=== PATIENT | male | born 1970 | race Caucasian/White ===

== ENCOUNTER 2024-12-20 11:11 | Emergency (ER) | payer OTHER, SELFPAY ==
[2024-12-20 11:17] VITALS: BP 140/90
[2024-12-20 12:41] LABS: % Basophils 0.5 % (0-2); % Eosinophils 3.4 % (0-6); % Immature Granulocytes 0.2 % (0-0.5); % Monocytes 10.3 % (1.7-9.3); % Neutrophils 65.6 % (42.2-75.2); Absolute Eosinophils 0.3 10^3/uL (0-0.7); Absolute Lymphocytes 1.7 10^3/uL (1.2-3.4); Absolute Monocytes 0.9 10^3/uL (0.1-0.6); Absolute Neutrophils 5.6 10^3/uL (1.4-6.5); Hematocrit 41.4 % (39.0-52.0); Hemoglobin 14.1 g/dL (13.0-18.0); Mean Corp Hgb Conc. 34.1 g/dL (33.0-37.0); Mean Corpuscular Hgb 29.6 pg (27.0-31.0); Mean Corpuscular Volume 86.8 fL (80.0-94.0); Mean Platelet Volume 9.8 fL (7.4-10.4); Nucleated Red Blood Cells % 0 % (-); Platelet Count 285 10^3/uL (130-400); Red Blood Cell Count 4.77 10^6/uL (4.70-6.10); Red Cell Dist. Width 11.9 % (11.5-14.5); White Blood Cell Count 8.5 10^3/uL (4.8-10.8)
--- NOTE | 2024-12-20 12:41 | ED.GENMED ---
History of Present Illness
General
Chief Complaint: Musculo-Skeletal Complaint
Source: patient
Exam Limitations: none
Time Seen by Provider: 12/20/24 12:12
Nursing documentation reviewed up to this point in time: agreed with
History of Present Illness
History of Present Illness:
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
pt says he felt some stiffness when it first started and has noticed increasing swellign since. never any skin changes, redness, warmth. pt is able to move his ankle but when he walks it is uncomfortable
about 6 days ago he went to and had xrays and was told he had no findings. put on steroids (soudns like pred 40 mg daily x 4 dys) and felt better on steroids but then the pain returned. using crutches to help avoid weight bearing
pt has not had fever, chills, numbnes/tingling/cp, sob, h/o dvt/pe
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
took motrin this morning.
Past History
Past History
ED Past Medical History: None
ED Past Surgical History: None
Social History
Tobacco: Non-smoker
Alcohol: None
Drug: None
Personal:
Living: with family
Employment: Employed
Review of Systems
Review of Systems
Allergies reviewed?: Yes
All Other Systems: Not applicable
Phy Exam
Physical Exam
Physical Exam:
GENERAL: Alert , in no apparent distress, comfortable at rest
HEAD: NCAT
CV: 2+ DP PULSES B/L
NEUROLOGICAL: Alert and oriented, no focal neuro deficits, , 5/5 strength, sensation intact, ambulation slight limp left leg
SKIN: Warm and dry, no skin changes
MUSCULOSKELETAL: Patient has diffuse swelling from his ankle to his toes on the left foot, some tenderness mildly to the midfoot, able to range his ankle normally, no redness or warmth. The plantar aspect of his foot distal MTPs of the second and
third there is a nontender lump with a callus in the center, there is no drainage
PSYCH: Normal and appropriate interaction.
Course
Orders/Labs/Results
Orders:
Orders
12/20/24 12:29
Ankle, left 3 view CR [CR Ankle - Left Min 3 Views ] Urgent
Comment:
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
CR Foot - Left Min 3 Views Urgent
Comment:
Reason For Exam: left foot swelling, no injury
Venous Doppler Lwr Ext Left [US Periph Venous LOWER Ext LT] Urgent
Comment:
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
12/20/24 12:36
Complete Blood Count/With Diff Urgent
Comprehensive Metabolic Panel Urgent
Uric Acid Urgent
12/20/24 13:47
Case Management Consult ONCE
Case Management Consult: Other
12/20/24 14:58
Apixaban [Eliquis] 5 mg PO NOW STA
Abnormal Lab Results
12/20/24
12:36
Absolute Monos (auto) 0.9 H 10^3/uL
(0.1-0.6)
Lymphocytes % 20.0 L %
(20.5-51.1)
Monocytes % 10.3 H %
(1.7-9.3)
BUN 22 H mg/dl
(9-20)
Glucose 109 H mg/dl
(70-99)
12/20/24 12:36
12/20/24 12:36
Vital Signs
Initial and Last Documented VS:
Initial Vital Signs
Temp Pulse Resp BP Pulse Ox
36.8 C 90 18 140/90 98
12/20/24 11:17 12/20/24 11:17 12/20/24 11:17 12/20/24 11:17 12/20/24 11:17
Last Documented Vital Signs
Temp Pulse Resp BP Pulse Ox
36.8 C 90 18 140/90 98
12/20/24 11:17 12/20/24 11:17 12/20/24 11:17 12/20/24 11:17 12/20/24 11:17
MDM/Problems Addressed
Differential Diagnosis Includes:
dvt, arthritis, sprain, pseudogout
MDM/Problems Addressed:
54 y/o M
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
ataruamtic pain/swelling L foot/ankle for about 10 days
worse with weight bearing
no numbnes/tingling/weakness, no skin changes, no cp, sob
on exam pt has no significant tendenress
he is diffusely swollen foot/ankle and slightly in the lower leg
normal NV exam
xryas indep reivewed sohw calcification plantar aspect of foot but no fx
dvt study POSITIVE
counseled on AC
labs reviewed, normal renal fxn
will consult case management
no cp, sob
d/c home
*Critical Care Note
Total Time (30-74mins, 75-104mins- exclusive of procedures): Not Applicable
ED Attending Note
-
Portions of this chart may have been created with voice recognition software.� Occasional wrong word or��sound alike� substitutions may have occurred due to the inherent limitations of voice recognition software.
Discharge Plan
Departure
Patient Disposition: Home (Routine Discharge)
Date of Disposition: 12/20/24
Time of Disposition: 14:51
Patient with high blood pressure during this ER visit?: Yes
Condition: Fair
Covid-19: Not Applicable
Discharge Problem:
DVT (deep venous thrombosis)
Instructions: Deep vein thrombosis (DVT) - ED discharge instructions
Prescriptions:
New
Eliquis DVT-PE Treat 30D Start 5 mg (74 tabs) tablets,dose pack
See Rx Instructions .ROUTE .COMPLEX Qty: 74 0RF
Rx Instructions:
orally per package directions
No Action
guaifenesin [Mucus Relief ER] 600 MG tablet extended release 12hr
600 mg PO Q12 0RF
dexamethasone [Decadron] 6 MG tablet
6 mg PO DAILY Qty: 6 0RF
Referrals:
Izzy Olson MD [Family Provider] - Follow up in 5-7 days
Activity Restrictions/Additional Instructions:
YOU HAVE A BLOOD CLOT IN A VEIN IN YOUR LEG CAUSING THE PAIN AND SWELLING IN YOUR FOOT AND ANKLE
YOUR XRAYS SHOW CALCIFICATION IN YOUR FOOT BUT THIS PROBABLY WAS FROM OLD INJURY AND IS NOT CAUSING THE PAIN
THERE ARE NO NEW BREAKS
YOUR BLOOD WORK WAS REASSURING
TAKE THE BLOOD THINNER PRESCRIBED DAILY
RETURN FOR: SPONTANEOUS BLEEDING YOU CANNOT CONTROL, HEAD INJURY, SEVERE PAIN, LEG COLOR CHANGES, CHEST PAIN, SHORTNESS OF BREATH ETC
IF YOU HAVE ANY TRAUMATIC INJURIES PLEASE CONSIDER BEING EVALUATED ANTICOAGUOLANTS INCREASE BLEEDING RISK AFTER TRAUMA
OTHERWISE SEE YOUR DOCTOR IN 2WEEKS.
Interventions
Interventions:
*Risk Screen - Suicide Last Done: 12/20/24 11:17
*General Assessment Last Done: 12/20/24 11:17
*Neglect/Abuse Screening Last Done: 12/20/24 11:17
*ED- Fall Risk Assessment Last Done: 12/20/24 15:13
*ED COVID-19 Vaccine History Last Done: 12/20/24 11:17
*Nursing Disposition Last Done: 12/20/24 15:13
ED-Musculoskeletal Assessment Last Done: 12/20/24 11:53
Discharge Date and Time
Discharge Date/Time: 12/20/24 15:14
Print Language: JAPANESE
[2024-12-20 13:04] LABS: ALT (SGPT) 17 U/L (0-50); AST (SGOT) 17 U/L (17-59); Albumin 3.9 g/dl (3.5-5.0); Alkaline Phosphatase 86 U/L (38-126); Blood Urea Nitrogen 22 mg/dl (9-20); Calcium 9.9 mg/dl (8.4-10.2); Carbon Dioxide 30 mmol/L (22-30); Chloride 102 mmol/L (98-107); Glucose 109 mg/dl (70-99); Potassium 4.4 mmol/L (3.5-5.1); Sodium 138 mmol/L (135-145); Total Bilirubin 0.8 mg/dl (0.2-1.3); Total Protein 7.4 g/dl (6.3-8.2); Uric Acid 6.7 mg/dl (3.5-8.5); eGFR > 60.00
--- NOTE | 2024-12-20 14:54 | CM ---
Cm reviewed medical records. Patient stated that he does not know what insurance company they use for prescriptions. Patient does have [employer] insurance for medical coverage. CM called [facility] pharmacy and confirmed that patient does have [facility] scripts.
Confirmed that Eliquis requires a prior authorization. Patient given Eliquis coupon and instructed to have patient follow up with PCP for prior authorization.
CM updated ED PA.
[2024-12-20] MEDS: ELIQUIS 5 MG PO (15:02)
== END 2024-12-20 15:14 | disposition home or self-care (01) ==
LOC: EMR 11:11
PROVIDERS: Physician Assistant; EMERGENCY PHYSICIAN Emergency Medicine; FAMILY PHYSICIAN Hospitalist
DX: I82.432 Acute embolism and thrombosis of left popliteal vein (principal); M25.572 Pain in left ankle and joints of left foot
CPT/HCPCS: 99284; 73610; 73630; 80053; 84550; 85025; 93971